=== PATIENT | female | born 1970 | race Caucasian/White ===

== ENCOUNTER → 2025-06-30 16:05 | Outpatient (REF) | payer OTHER, SELFPAY | LOC: RAD 16:05 | PROVIDERS: FAMILY PHYSICIAN Family Medicine | DX: M79.671 Pain in right foot (principal); M79.672 Pain in left foot; M79.642 Pain in left hand; M79.641 Pain in right hand; M25.572 Pain in left ankle and joints of left foot | CPT/HCPCS: 73130; 73610; 73630 ==